=== PATIENT | female | born 1975 | race Caucasian/White ===

== ENCOUNTER 2016-11-01 06:26 | Emergency (ER) | payer SELFPAY ==
--- NOTE | 2016-11-01 09:08 | ED NURSING NOTES ---
Clinical Report - Nurses [facility] [address] [place] [address] 11/01/2016 6:27 Patient: ASHLEY SHARPE TRIAGE Triage time 06:Nov 01 2016. Acuity: LEVEL 3. Chief Complaint: SORE THROAT. 06:47 11/01/16. SEPSIS SCREEN: Sepsis Screen: negative. Infection suspected/documented. Heart rate greater than 90. --06:47 Yvette Mendosa 06:43 11/01/16. BP: 146/66. HR: 108. RR: 20. O2 saturation: 100% on room air. Temp: 98.8 F (oral). Pain level now: 03/07. --06:47 Yvette Mendosa. Weight: 81.6 kg stated. Height/Length: 61 inches Per Patient. BMI: 34. --06:45 Yvette Mendosa. Medications None. --06:45 Yvette Mendosa. Medication/allergy information source: the patient. --06:47 Yvette Mendosa. Allergies No Known Drug Allergy. --06:46 Yvette Mendosa. History Arrived by private vehicle. Historian: patient. Accompanied by family. Primary physician ([facility]). Onset. (1 weeks). ( Patient reports she has a sore throat since last Wednesday. Patient reports she went to [place] and was given a steroid and she states it is not helping. She states [place] told her that her tonsil was swollen and she needed to see a specialist.). PAST MEDICAL HX: Immunizations: up-to-date. Last normal menstrual period- 15 October. SOCIAL HX: Never smoker. No alcohol use or drug use. No infectious disease exposure. ABUSE ASSESSMENT: No report of abuse. FALL RISK ASSESSMENT: Fall risk assessment completed. No fall risk identified. NUTRITIONAL RISK ASSESSMENT: The nutritional risk assessment revealed no deficiencies. FUNCTIONAL ASSESSMENT: Functional assessment: no impairments noted. LEARNING NEEDS ASSESSMENT: The learning needs assessment revealed no barriers. SKIN INTEGRITY ASSESSMENT: Skin integrity risk assessment completed. No skin integrity risk identified. --06:47 Yvette Mendosa. PROBLEMS: no known problems. ADDITIONAL SURGERIES: Tubal Ligation. --06:46 Yvette Mendosa. Interventions ID band on patient. To treatment room. --06:47 Yvette Mendosa. PHYSICAL ASSESSMENT Ambulatory to room. GENERAL / NEURO / PSYCH: Alert. Oriented X 4. Appears in pain. HEENT: Posterior, right-sided and left-sided pharyngeal erythema with right tonsillar swelling and left tonsillar swelling. Muffled voice. Mucous membranes are pink. RESPIRATORY: Respirations not labored. CVS: Cardiac rhythm: sinus tachycardia; (105). SKIN: Skin is warm and dry. --06:49 Yvette Mendosa. NURSING PROGRESS NOTES Pulse oximeter and NIBP monitor placed on patient; monitor alarms on. Reassurance given to the patient. Two patient identifiers checked. Call light placed in reach. Side rails up x 1. Bed placed in lowest position. Brakes of bed on. Patient ready for evaluation- chart flagged and ED physician notified. --06:49 Yvette Mendosa Patient ID band checked for patient name and birthdate: patient confirmed. Throat swab obtained for rapid strep; labeled in the presence of the patient and sent to lab. --06:49 Navya Yvette Care transferred and report given (Garcia Estrella). --07:01 Yvette Mendosa 07:20. The patient reports no complaints and she is calm and resting quietly. ( First contact with pt.). --07:32 Gi Diez R.N. 07:31 11/01/16. BP: 146/76. HR: 96. RR: 18. O2 saturation: 96%. Pain level now 9/10. --07:32 Gi Diez R.N. 07:21 11/01/2016 Site #1 started via IV in the right antecubital space with an 20g angiocath, with aseptic technique and good blood return; one attempt. Blood drawn: rainbow set. Labeled in the presence of the patient and sent to the lab. Saline lock flushed with 10 mL saline. --07:32 Gi Diez R.N. 07:28 11/01/2016 Started bag #1 1000 mL IV Fluids IV NS (Saline); at 1000 mL/hr over 1 hour(s) via site #1 via IV pump. Allergies verified and confirmed 5 rights. IV patency established. IV site checked: no pain, redness, or swelling. IV flushed thoroughly pre- and post-medication administration. --07:34 Gi Diez R.N. 07:29 11/01/2016 Zofran (Ondansetron HCl) IVP 4 mg given over 1 minute(s) via site #1. Allergies verified and confirmed 5 rights. IV patency established. IV site checked: no pain, redness, or swelling. IV flushed thoroughly pre- and post-medication administration. --07:34 Gi Diez R.N. 07:30 11/01/2016 Dexamethasone IVP 10 mg given over 3 minute(s) via site #1. Allergies verified and confirmed 5 rights. IV patency established. IV site checked: no pain, redness, or swelling. IV flushed thoroughly pre- and post-medication administration. --07:34 Gi Diez R.N. 07:38 11/01/2016 Dilaudid (HYDROmorphone HCl PF) IVP 0.5 mg given over 1 minute(s) via site #1. Allergies verified, confirmed 5 rights and sedative warning given to the patient. IV patency established. IV site checked: no pain, redness, or swelling. IV flushed thoroughly pre- and post-medication administration. --07:38 Gi Diez R.N. 07:41 11/01/2016 Started 2 gm of Ceftriaxone IVPB in bag #1 50 mL; at 150 mL/hr over 20 minute(s) via site #1 via IV pump. Allergies verified and confirmed 5 rights. IV patency established. IV site checked: no pain, redness, or swelling. IV flushed thoroughly pre- and post-medication administration. --07:41 Gi Diez R.N. 07:42 11/01/2016 Dilaudid IVP Response: no adverse reaction pain is improving. The patient feels better. --07:42 Gi Diez R.N. 07:42 11/01/16. HR: 100. RR: 16. O2 saturation: 98%. --07:43 Gi Diez R.N. 07:59 11/01/2016 Ceftriaxone IVPB Discontinued: infused. Total amount infused: 20 mL. IV patency established. IV site checked: no pain, redness, or swelling. IV flushed thoroughly. --07:59 Gi Diez R.N. 07:59 11/01/16. BP: 152/66. HR: 105. RR: 16. O2 saturation: 98%. Pain level now 10. --08:00 Gi Diez R.N. 08:30 11/01/2016 IV Fluids IV NS Discontinued: bag #1 infused. Total amount infused: 1000 mL. IV patency established. IV site checked: no pain, redness, or swelling. IV flushed thoroughly. --09:15 Gi Diez R.N. DISPOSITION / DISCHARGE 09:15 11/01/2016 Site #1 removed upon discharge. Catheter intact. Manual pressure and bandaid applied. --09:15 Gi Diez R.N. 09:13 11/01/16. BP: 128/64. HR: 100. RR: 16. O2 saturation: 98%. Temp: 99.4 F. Pain level now 10. --09:15 Gi Diez R.N. Condition at departure: stable. No learning barriers present. Discharge instructions provided and reviewed with the patient. Reviewed medication(s) side effects, precautions, dosing and course information. Prescription(s) given to the patient. Reviewed referral to family practice for followup. Patient verbalized understanding. Written instructions provided in Sami. The patient was discharged home and accompanied by family. She left the Emergency Department ambulatory and via private vehicle. Family member driving. Medication list reviewed and validated. --09:15 Gi Diez R.N. Departure time: 09:20. --09:21 Gi Diez R.N. Locked/Released at 11/01/2016 10:20 by Gi Diez R.N.
--- NOTE | 2016-11-01 09:08 | ED CLINICAL REPORT ---
Clinical Report - Physicians/Mid Levels [facility] [address] [place] [address] 11/01/2016 6:27 Patient: ASHLEY SHARPE Time Seen: 06:50. Arrived- By private vehicle. Historian- patient. HISTORY OF PRESENT ILLNESS Chief Complaint: SORE THROAT. This started about 1 week ago and is still present. It was gradual in onset and has been waxing/waning. Pain described as moderate. The patient has had a sore throat with pain upon swallowing. No toothache or swollen jaw. Similar symptoms previously: Recent medical care: The patient was seen recently at another facility in the emergency department. ( Patient reports she has a sore throat since last Wednesday. Patient reports she went to [place] and was given a steroid and she states it is not helping. She states [place] told her that her tonsil was swollen and she needed to see a specialist.). Seen for similar symptoms. ( Seen at [facility] [place] for the same.). REVIEW OF SYSTEMS Last normal menstrual period- 15 October. No fever, cough, difficulty breathing, chest pain or diarrhea. No abdominal pain, difficulty with urination, headache, joint pain or skin rash. No vomiting. Denies current . The patient has had nausea. All systems otherwise negative, except as recorded above. PAST HISTORY PCP: [facility]. Multiple episodes of strep throat. Problems: no known problems. Surgeries: Tubal ligation. Medications: None. Allergies: No Known Drug Allergy. SOCIAL HISTORY Never smoker. No alcohol use or drug use. ADDITIONAL NOTES The nursing notes have been reviewed. PHYSICAL EXAM Vital Signs: 11/01/2016 06:43 BP: 146/66. HR: 108. RR: 20. O2 saturation: 100%. Temp: 98.8 F. Pain level now: 9/10. Appearance: Alert. Patient in moderate distress. Head: Normal external inspection. Eyes: Conjunctivae and eyelids normal. ENT: Ears normal. Nose normal. Generalized pharyngeal erythema with right tonsillar swelling and peritonsillitis and left tonsillar swelling and peritonsillitis. No right tonsillar exudate, right tonsillar abscess, left tonsillar exudate or left tonsillar abscess. No trismus present. Uvula midline. No mouth ulcerations, tonsillar exudate, peritonsillar mass, muffled or hoarse voice or drooling. No dental tenderness. The mucous membranes are not dry. Neck: Normal inspection. Moderate right anterior neck and moderate left anterior neck lymphadenopathy present. Trachea midline. Neck supple. No meningeal signs or JVD. CVS: Tachycardia. Heart sounds normal. Pulses normal. Respiratory: No respiratory distress. Breath sounds normal. Abdomen: Soft and nontender. No organomegaly. Skin: Normal skin color. No rash. Normal skin turgor. Extremities: Extremities exhibit normal ROM. Extremities nontender. Neuro: Oriented X 3. No motor deficit. LABS, X-RAYS, AND EKG Laboratory Tests: Monoscreen: (JOSE: 11/01/2016 07:44) ( [facility] 11/01/2016 08:31) Final results Test Result Flag Units (Reference) MONOSCREEN NEGATIVE (NEGATIVE) CBC w Diff: (JOSE: 11/01/2016 07:44) ( [facility] 11/01/2016 08:47) Final results Test Result Flag Units (Reference) WHITE BLOOD COUNT 10.3 K/uL (4.5-11.5) RED BLOOD COUNT 4.87 M/uL (4.00-5.20) HEMOGLOBIN 9.7 L gm/dL (12.0-16.0) HEMATOCRIT 31.4 L % (36.0-46.0) MEAN CELL VOLUME 64 L fL (80-100) MEAN CORPUSCULAR HGB 20 L pg (26-34) MEAN CORPUSCULAR HGB CONC 31 g/dL (31-37) RED CELL DISTRIBUTION WIDTH 17.9 H % (11.6-14.8) PLATELET COUNT 426 H K/uL (150-400) NEUTROPHIL % 74.4 % (50-75) LYMPH % 19.1 L % (25-40) MONO % 5.1 % (3-14) EOSINOPHIL % 1.1 % (0-4) BASOPHIL % 0.3 % (0-2) RBC MORPHOLOGY 1+ POLYCHROMASIA~~2+ OVALOCYTES~~3+ MICROCYTOSIS~~3+ HYPOCHROMIA BMP: (JOSE: 11/01/2016 07:44) ( MsgRcvd 11/01/2016 08:21) Final results Test Result Flag Units (Reference) GLUCOSE 127 H mg/dL (70-110) BUN 10 mg/dL (7-18) CREATININE 0.7 mg/dL (0.6-1.3) Estimated GFR >60 mL/min Estimated GFR- >60 mL/min Note: Persistent reduction over 3 months in eGFR<60 mL/min/1.73 m2 defines CKD. Patients with eGFR values>=60 mL/min/1.73 m2 may also have CKD if evidence ofpersistent proteinuria. Additional information may be foundat www.kidney.org. SODIUM 145 mmol/L (136-145) POTASSIUM 3.5 mmol/L (3.5-5.1) CHLORIDE 107 mmol/L (98-107) CARBON DIOXIDE 27 mmol/L (21-32) CALCIUM 7.9 L mg/dL (8.5-10.1) Culture, Strep Screen: (JOSE: 11/01/2016 06:47) ( MsgRcvd 11/01/2016 07:00) Final results Test Result Flag Units (Reference) RAPID STREP SCREEN - THROAT CALLED TO: BRANDI DAVID RN -- DATE: 11/01/16 POSITIVE SCREEN: RAPID STREP SCREEN: POSITIVE FOR GROUP A STREP . Pulse Oximetry: 11/01/2016 06:43 O2 saturation: 100%. (FIO2 - room air). Interpretation: normal. PROGRESS AND PROCEDURES Course of Care: Normal Saline 1 liter IVPB given. Ceftriaxone 2 gm IVP given. Dexamethasone 10 mg IVP given. Dilaudid 0.5 mg IVP given. 08:39 11/01/16. Patient is stable. Physical exam findings are improved. Symptoms much better. Patient/family counseled. Old ED records reviewed. (from [facility] Disposition: Discharged. Condition: stable and improved. CLINICAL IMPRESSION Acute streptococcal pharyngitis INSTRUCTIONS Do not work for three days. Rest. Drink plenty of fluids. Warnings: Further evaluation is necessary in order to recheck abnormal lab, obtain test results, conduct further tests and assess the possibility of serious illness. It is very important to follow up with a physician. SEDATIVE MEDICATION: You were given sedative medication during your visit. Do not drive or operate dangerous machinery. CONTROLLED SUBSTANCE WARNINGS. GENERAL WARNINGS: Return or contact your physician immediately if your condition worsens or changes unexpectedly, if not improving as expected, or if other problems arise. Prescription Medications: Clindamycin 300 mg: take 1 capsule orally every 6 hours for 7 days. No refills. Lortab Elixir 10 mg / 300 mg / 15 mL: take five (5) mL orally every 8 hours as needed for pain. Dispense seventy-five (75) mL. No refill. Substitution is permissible. Prednisolone Liquid 15mg/5 mL: take two (2) teaspoons orally every day for 3 days. No refill. OTC Medications: Acetaminophen (available over the counter): take according to label instructions. Motrin (available over the counter): take according to label instructions. Follow-up: Follow up with an ear, nose and throat physician (an implant polisher) As recommended by Mohit and / or your primary care provider tomorrow. Follow-up with: Ralph Smauels MD, ENT, , [facility], [address] [place] [address], [phone] Follow up tomorrow. (Electronically signed by Tomer Guardado DO 11/01/2016 11:13)
--- NOTE | 2016-11-01 09:08 | ED ORDER SUMMARY ---
..... Patient: ASHLEY SHARPE OrderSheet [facility] VisitID: [id number] [address] [place] [address] 41y, F Registration Date/Time: 11/01/2016 ORDER SHEET Weight: 81.6 kg (stated) Allergies: No Known Drug Allergy GENERAL ORDERS: Culture, Strep Screen [facility]gent [facility]06[facility] (6:52 JDeElena R.N.) CBC w Diff Urgent (07:[facility]/2016 [facility] (Ack 7:20 TBergley) (7:32 SReitz R.N.) BMP Urgent (07:[facility]/2016 [facility] (Ack 7:20 TBergley) (7:32 SReitz R.N.) Monoscreen Urgent (07:11[facility]01/2016 [facility] (Ack 7:20 TBergley) (7:32 SReitz R.N.) NPO (07:[facility]/2016 [facility] (Ack 7:20 TBergley) (7:32 SReitz R.N.) Old Records (from [facility]) (07:11/01/2016 [facility]) (Ack 7:19 TBergley) (9:11 SReitz R.N.) MEDICATION ORDERS: IV FLUIDS: Dexamethasone IV 10 mg (NOW) (07:11/01/2016 [facility]) (Ack 7:11 SReitz R.N.) (7:34 SReitz R.N.) Ceftriaxone IV 2 gm/50mL (NOW) (07:[facility]01/2016 [facility] (Ack 7:11 SReitz R.N.) (7:41 SReitz R.N.) IV NS : initial bolus 1000 mL (1000 mL/hr), then 1000 mL/hr for X1 (NOW) (07:[facility]/2016 [facility] (Ack 7:11 SReitz R.N.) (7:34 SReitz R.N.) IV Saline Lock (07:11/01/2016 [facility] DO) (Ack 7:11 Emma Lindsay) Dilaudid IV 0.5 mg (HIGH ALERT MEDICATION, NOW) (07:10 [facility]2016 [facility] (Ack 7:35 Emma DeeNRachel) (7:38 Emma Estrella.N.) Zofran IV 4 mg (NOW) (07:22 11/01/2016 [facility]) (7:34 Emma Lindsay) ORDER SHEET NOTES: [Electronically signed by Gi Diez R.N. (10:11/01/2016)] [Electronically signed by Tomer Guardado DO (11:13 11/01/2016)] [Electronically locked/signed by Gi Diez R.N. (:11/01/2016)]
--- NOTE | 2016-11-01 09:08 | ED CLINICAL REPORT ---
Clinical Report - Physicians/Mid Levels [facility] [address] [place] [address] 11/01/2016 6:27 Patient: ASHLEY SHARPE Time Seen: 06:50. Arrived- By private vehicle. Historian- patient. HISTORY OF PRESENT ILLNESS Chief Complaint: SORE THROAT. This started about 1 week ago and is still present. It was gradual in onset and has been waxing/waning. Pain described as moderate. The patient has had a sore throat with pain upon swallowing. No toothache or swollen jaw. Similar symptoms previously: Recent medical care: The patient was seen recently at another facility in the emergency department. ( Patient reports she has a sore throat since last Wednesday. Patient reports she went to [place] and was given a steroid and she states it is not helping. She states [place] told her that her tonsil was swollen and she needed to see a specialist.). Seen for similar symptoms. ( Seen at [facility] yesterday for the same.). REVIEW OF SYSTEMS Last normal menstrual period- 15 October. No fever, cough, difficulty breathing, chest pain or diarrhea. No abdominal pain, difficulty with urination, headache, joint pain or skin rash. No vomiting. Denies current . The patient has had nausea. All systems otherwise negative, except as recorded above. PAST HISTORY PCP: [facility]. Multiple episodes of strep throat. Problems: no known problems. Surgeries: Tubal ligation. Medications: None. Allergies: No Known Drug Allergy. SOCIAL HISTORY Never smoker. No alcohol use or drug use. ADDITIONAL NOTES The nursing notes have been reviewed. PHYSICAL EXAM Vital Signs: 11/01/2016 06:43 BP: 146/66. HR: 108. RR: 20. O2 saturation: 100%. Temp: 98.8 F. Pain level now: 9/10. Appearance: Alert. Patient in moderate distress. Head: Normal external inspection. Eyes: Conjunctivae and eyelids normal. ENT: Ears normal. Nose normal. Generalized pharyngeal erythema with right tonsillar swelling and peritonsillitis and left tonsillar swelling and peritonsillitis. No right tonsillar exudate, right tonsillar abscess, left tonsillar exudate or left tonsillar abscess. No trismus present. Uvula midline. No mouth ulcerations, tonsillar exudate, peritonsillar mass, muffled or hoarse voice or drooling. No dental tenderness. The mucous membranes are not dry. Neck: Normal inspection. Moderate right anterior neck and moderate left anterior neck lymphadenopathy present. Trachea midline. Neck supple. No meningeal signs or JVD. CVS: Tachycardia. Heart sounds normal. Pulses normal. Respiratory: No respiratory distress. Breath sounds normal. Abdomen: Soft and nontender. No organomegaly. Skin: Normal skin color. No rash. Normal skin turgor. Extremities: Extremities exhibit normal ROM. Extremities nontender. Neuro: Oriented X 3. No motor deficit. LABS, X-RAYS, AND EKG Laboratory Tests: Monoscreen: (JOSE: 11/01/2016 07:44) ( [facility] 11/01/2016 08:31) Final results Test Result Flag Units (Reference) MONOSCREEN NEGATIVE (NEGATIVE) CBC w Diff: (JOSE: 11/01/2016 07:44) ( [facility] 11/01/2016 08:47) Final results Test Result Flag Units (Reference) WHITE BLOOD COUNT 10.3 K/uL (4.5-11.5) RED BLOOD COUNT 4.87 M/uL (4.00-5.20) HEMOGLOBIN 9.7 L gm/dL (12.0-16.0) HEMATOCRIT 31.4 L % (36.0-46.0) MEAN CELL VOLUME 64 L fL (80-100) MEAN CORPUSCULAR HGB 20 L pg (26-34) MEAN CORPUSCULAR HGB CONC 31 g/dL (31-37) RED CELL DISTRIBUTION WIDTH 17.9 H % (11.6-14.8) PLATELET COUNT 426 H K/uL (150-400) NEUTROPHIL % 74.4 % (50-75) LYMPH % 19.1 L % (25-40) MONO % 5.1 % (3-14) EOSINOPHIL % 1.1 % (0-4) BASOPHIL % 0.3 % (0-2) RBC MORPHOLOGY 1+ POLYCHROMASIA~~2+ OVALOCYTES~~3+ MICROCYTOSIS~~3+ HYPOCHROMIA BMP: (JOSE: 11/01/2016 07:44) ( MsgRcvd 11/01/2016 08:21) Final results Test Result Flag Units (Reference) GLUCOSE 127 H mg/dL (70-110) BUN 10 mg/dL (7-18) CREATININE 0.7 mg/dL (0.6-1.3) Estimated GFR >60 mL/min Estimated GFR- >60 mL/min Note: Persistent reduction over 3 months in eGFR<60 mL/min/1.73 m2 defines CKD. Patients with eGFR values>=60 mL/min/1.73 m2 may also have CKD if evidence ofpersistent proteinuria. Additional information may be foundat www.kidney.org. SODIUM 145 mmol/L (136-145) POTASSIUM 3.5 mmol/L (3.5-5.1) CHLORIDE 107 mmol/L (98-107) CARBON DIOXIDE 27 mmol/L (21-32) CALCIUM 7.9 L mg/dL (8.5-10.1) Culture, Strep Screen: (JOSE: 11/01/2016 06:47) ( MsgRcvd 11/01/2016 07:00) Final results Test Result Flag Units (Reference) RAPID STREP SCREEN - THROAT CALLED TO: BRANDI DAVID RN -- DATE: 11/01/16 POSITIVE SCREEN: RAPID STREP SCREEN: POSITIVE FOR GROUP A STREP . Pulse Oximetry: 11/01/2016 06:43 O2 saturation: 100%. (FIO2 - room air). Interpretation: normal. PROGRESS AND PROCEDURES Course of Care: Normal Saline 1 liter IVPB given. Ceftriaxone 2 gm IVP given. Dexamethasone 10 mg IVP given. Dilaudid 0.5 mg IVP given. 08:39 11/01/16. Patient is stable. Physical exam findings are improved. Symptoms much better. Patient/family counseled. Old ED records reviewed. (from [facility]). Disposition: Discharged. Condition: stable and improved. CLINICAL IMPRESSION Acute streptococcal pharyngitis INSTRUCTIONS Do not work for three days. Rest. Drink plenty of fluids. Warnings: Further evaluation is necessary in order to recheck abnormal lab, obtain test results, conduct further tests and assess the possibility of serious illness. It is very important to follow up with a physician. SEDATIVE MEDICATION: You were given sedative medication during your visit. Do not drive or operate dangerous machinery. CONTROLLED SUBSTANCE WARNINGS. GENERAL WARNINGS: Return or contact your physician immediately if your condition worsens or changes unexpectedly, if not improving as expected, or if other problems arise. Prescription Medications: Clindamycin 300 mg: take 1 capsule orally every 6 hours for 7 days. No refills. Lortab Elixir 10 mg / 300 mg / 15 mL: take five (5) mL orally every 8 hours as needed for pain. Dispense seventy-five (75) mL. No refill. Substitution is permissible. Prednisolone Liquid 15mg/5 mL: take two (2) teaspoons orally every day for 3 days. No refill. OTC Medications: Acetaminophen (available over the counter): take according to label instructions. Motrin (available over the counter): take according to label instructions. Follow-up: Follow up with an ear, nose and throat physician (an electro mechanic) As recommended by Mohit and / or your primary care provider tomorrow. Follow-up with: Ralph Samuels MD, ENT, , [facility], [address] [place] [address], [phone] Follow up tomorrow. (Electronically signed by Tomer Guardado DO 11/01/2016 11:13)
--- NOTE | 2016-11-01 09:08 | ED ORDER SUMMARY ---
..... Patient: ASHLEY SHARPE OrderSheet [facility] VisitID: [id number] [address] [place] [address] 41y, F Registration Date/Time: 11/01/2016 ORDER SHEET Weight: 81.6 kg (stated) Allergies: No Known Drug Allergy GENERAL ORDERS: Culture, Strep Screen Urgent (06:50 11/01/2016 [facility] DO) (6:52 JDeElena R.N.) CBC w Diff Urgent (07:11/01/2016 [facility] DO) (Ack 7:20 TBergley) (7:32 SReitz R.N.) BMP Urgent (07:11/01/2016 [facility] DO) (Ack 7:20 TBergley) (7:32 SReitz R.N.) Monoscreen Urgent (07:11/01/2016 [facility] DO) (Ack 7:20 TBergley) (7:32 SReitz R.N.) NPO (07:11/01/2016 [facility] DO) (Ack 7:20 TBergley) (7:32 SReitz R.N.) Old Records (from [facility]) (07:11/01/2016 [facility] DO) (Ack 7:19 TBergley) (9:11 SReitz R.N.) MEDICATION ORDERS: IV FLUIDS: Dexamethasone IV 10 mg (NOW) (07:11/01/2016 [facility] DO) (Ack 7:11 SReitz R.N.) (7:34 SReitz R.N.) Ceftriaxone IV 2 gm/50mL (NOW) (07:11/01/2016 [facility] DO) (Ack 7:11 SReitz R.N.) (7:41 SReitz R.N.) IV NS : initial bolus 1000 mL (1000 mL/hr), then 1000 mL/hr for X1 (NOW) (07:11/01/2016 [facility] DO) (Ack 7:11 SReitz R.N.) (7:34 SReitz R.N.) IV Saline Lock (07:11/01/2016 [facility] DO) (Ack 7:11 Emma Lindsay) Dilaudid IV 0.5 mg (HIGH ALERT MEDICATION, NOW) [facility]07:10 [facility] (Ack 7:35 Emma DeeNRachel) (7:38 Emma Estrella.N.) Zofran IV 4 mg (NOW) (07:22 11/01/2016 [facility]) (7:34 Emma Lindsay) ORDER SHEET NOTES: [Electronically signed by Gi Diez R.N. (10:11/01/2016)] [Electronically signed by Tomer Guardado DO (11:13 11/01/2016)] [Electronically locked/signed by Gi Diez R.N. (:11/01/2016)]
--- NOTE | 2016-11-01 11:14 | ED MED RECONCILIATION SUMMARY ---
Patient: ASHLEY SHARPE Medication Reconciliation Report [facility] VisitID: [id number] [address] [place] [address] 41y, F Registration Date/Time: 11/01/2016 Weight: 81.6 kg Height/Length: 61 in. BMI: 34.0 ALLERGIES: No Known Drug Allergy The patient's Home Medications are listed below: NONE. The source(s) of the original Home Medication information: patient The following Medications were given to the patient in the Emergency Department: IV NS IV Fluids bolus 0, then 1000 mL/hr, administered: 11/01/2016 7:28:00 AM Zofran [IVP] IVP 4 mg, administered: 11/01/2016 7:29:00 AM Dexamethasone [IVP] IVP 10 mg, administered: 11/01/2016 7:30:00 AM Dilaudid [IVP] IVP 0.5 mg, administered: 11/01/2016 7:38:00 AM Ceftriaxone [IVPB] IVPB bolus 0, then 2 gm 150 mL/hr, administered: 11/01/2016 7:41:00 AM The following Medications were prescribed to the patient: Acetaminophen (available over the counter): take according to label instructions. -- Tomer Guardado DO Motrin (available over the counter): take according to label instructions. -- Tomer Guardado DO Clindamycin 300 mg: take 1 capsule orally every 6 hours for 7 days. No refills. -- Tomer Guardado DO Lortab Elixir 10 mg / 300 mg / 15 mL: take five (5) mL orally every 8 hours as needed for pain. Dispense seventy-five (75) mL. No refill. Substitution is permissible. -- Tomer Guardado DO Prednisolone Liquid 15mg/5 mL: take two (2) teaspoons orally every day for 3 days. No refill. -- Tomer Guardado DO
--- NOTE | 2016-11-01 11:14 | ED MAR SUMMARY ---
..... Medication Administration Record [facility] [address] [place] [address] Patient: ASHLEY SHARPE Visit ID: [id number] 41y, F Weight: 81.6 kg Height/Length: 61 in BMI: 34 ALLERGIES: No Known Drug Allergy Start 07:28 11/01/2016 Gi Diez R.N., Stop 08:30 11/01/2016 Gi Diez R.N. Medication Administered: IV NS (SALINE), Dose: IV Fluids over 1 hour(s), Rate: 1000 mL/hr, Dispensed: 1000 mL bag, Site: #1 right AC. Medication Ordered: IV NS : initial bolus 1000 mL (1000 mL/hr), then 1000 mL/hr for X1 (NOW). Given 07:29 11/01/2016 Gi Diez R.N. Medication Administered: ZOFRAN [IVP] (ONDANSETRON HCL), Dose: 4 mg IVP over 1 minute(s), Site: #1 right AC. Medication Ordered: Zofran IV 4 mg (NOW). Given 07:30 11/01/2016 Gi Diez R.N. Medication Administered: DEXAMETHASONE [IVP], Dose: 10 mg IVP over 3 minute(s), Site: #1 right AC. Medication Ordered: Dexamethasone IV 10 mg (NOW). Given 07:38 11/01/2016 Gi Diez R.N. Medication Administered: DILAUDID [IVP] (HYDROMORPHONE HCL PF), Dose: 0.5 mg IVP over 1 minute(s), Site: #1 right AC. Medication Ordered: Dilaudid IV 0.5 mg (HIGH ALERT MEDICATION, NOW). Start 07:41 11/01/2016 Gi Diez R.N., Stop 07:59 11/01/2016 Gi Diez R.N. Medication Administered: CEFTRIAXONE [IVPB], Dose: 2 gm IVPB over 20 minute(s), Rate: 150 mL/hr, Dispensed: 50 mL bag, Site: #1 right AC. Medication Ordered: Ceftriaxone IV 2 gm/50mL (NOW).
--- NOTE | 2016-11-01 11:14 | ED DISCHARGE INSTRUCTIONS ---
Patient: ASHLEY SHARPE General Instructions [facility] VisitID: [id number] [address] [place] [address] 41y, F Registration Date/Time: 11/01/2016 Acute streptococcal pharyngitis INSTRUCTIONS Do not work for three days. Rest. Drink plenty of fluids. Warnings: Further evaluation is necessary in order to recheck abnormal lab, obtain test results, conduct further tests and assess the possibility of serious illness. It is very important to follow up with a physician. SEDATIVE MEDICATION: You were given sedative medication during your visit. Do not drive or operate dangerous machinery. CONTROLLED SUBSTANCE WARNINGS. GENERAL WARNINGS: Return or contact your physician immediately if your condition worsens or changes unexpectedly, if not improving as expected, or if other problems arise. Prescription Medications: Clindamycin 300 mg: take 1 capsule orally every 6 hours for 7 days. No refills. Lortab Elixir 10 mg / 300 mg / 15 mL: take five (5) mL orally every 8 hours as needed for pain. Dispense seventy-five (75) mL. No refill. Substitution is permissible. Prednisolone Liquid 15mg/5 mL: take two (2) teaspoons orally every day for 3 days. No refill. OTC Medications: Acetaminophen (available over the counter): take according to label instructions. Motrin (available over the counter): take according to label instructions. Follow-up: Follow up with an ear, nose and throat physician (an bankruptcy paralegal) As recommended by Mohit and / or your primary care provider tomorrow. Follow-up with: Ralph Samuels MD, ENT, , [facility], [address] [place] [address], [facility], [id number] Follow up tomorrow. ADDITIONAL INFORMATION Pharyngitis: Strep [Confirmed] Your test for strep throat was positive. Strep throat is a contagious illness. It is spread by coughing, kissing or by touching others after touching your mouth or nose. Symptoms include throat pain which is worse with swallowing, aching all over, headache and fever. You will be treated with an antibiotic which should make you start to feel better within 1-2 days. Home Care: Rest at home and drink plenty of fluids to avoid dehydration. No school or work for the first two days on antibiotics. You will not be contagious after this time and if you are feeling better, you can return to school or work. Take your antibiotics for a full 10 days, even if you feel better after the first few days of treatment. This is very important to prevent heart or kidney disease that can result as a complication of untreated strep throat infection. Children: Use acetaminophen (Tylenol) for fever, fussiness or discomfort. In infants over six months of age, you may use ibuprofen (Children's Motrin) instead of Tylenol. [NOTE: If your child has chronic liver or kidney disease or ever had a stomach ulcer or GI bleeding, talk with your doctor before using these medicines.] (Aspirin should never be used in anyone under 18 years of age who is ill with a fever. It may cause severe liver damage.)Adults: You may use acetaminophen (Tylenol) or ibuprofen (Motrin, Advil) to control pain or fever, unless another medicine was prescribed for this. [NOTE: If you have chronic liver or kidney disease or ever had a stomach ulcer or GI bleeding, talk with your doctor before using these medicines.] Throat lozenges or sprays (Chloraseptic and others) will reduce pain. Gargling with warm salt water will also reduce throat pain. Dissolve 1/2 teaspoon of salt in 1 glass of warm water. This is especially useful just before meals. Follow Up with your doctor or as directed by our staff if you are not improving over the next week. Get Prompt Medical Attention if any of the following occur: Fever of 100.4F (38C) oral or higher, not better with fever medication New or worsening ear pain, sinus pain or headache Painful lumps in the back of your neck Unable to swallow liquids or open your mouth wide due to throat pain Trouble breathing or noisy breathing Muffled voice New rash Clear Liquid Diet Clear liquids are any liquid that you can see through as well as those that are very easy to digest. This is used while the body is recovering from irritation or infection of the stomach or intestinal tract. It may also be used before special procedures or surgery. This diet is to be used no more than three days. You may include the following items. Adults Adults should drink a total of 23 quarts of liquid per day. It may be easier to drink small frequent servings rather than a few large ones. Liquids can include: Fruit juices.Strained orange juice or lemonade (no pulp), apple, grape and cranberry juice, clear fruit drinks, sports drinks Beverages.Sport drinks, sodas, mineral water (plain or flavored), tea, black coffee, liquid gelatin (add twice the recommended amount of water) Soups.Clear broth, consomm, bouillon Desserts.Plain gelatin, popsicles, fruit juice bars Children Over 2 years old The following liquids are acceptable for children over age 2: Fruit juices.Strained orange juice or lemonade (no pulp), apple, grape and cranberry juice, clear fruit drinks Beverages. Sports drinks, sodas, mineral water (plain or flavored), tea, liquid gelatin (add twice the recommended amount of water) Soups. Clear broth, consomm, bouillon Desserts. Plain gelatin, popsicles, fruit juice bars Children under 2 years old Oral rehydration fluids such are available at drug stores and most grocery stores without a prescription. Clindamycin Hydrochloride Oral capsule What is this medicine? CLINDAMYCIN (KLIN da MYE sin) is a lincosamide antibiotic. It is used to treat certain kinds of bacterial infections. It will not work for colds, flu, or other viral infections. How should I use this medicine? Take this medicine by mouth with a full glass of water. Follow the directions on the prescription label. You can take this medicine with food or on an empty stomach. If the medicine upsets your stomach, take it with food. Take your medicine at regular intervals. Do not take your medicine more often than directed. Take all of your medicine as directed even if you think your are better. Do not skip doses or stop your medicine early. Talk to your carroting machine operator regarding the use of this medicine in children. Special care may be needed. What side effects may I notice from receiving this medicine? Side effects that you should report to your doctor or health morning caregiver as soon as possible: allergic reactions like skin rash, itching or hives, swelling of the face, lips, or tongue dark urine pain on swallowing redness, blistering, peeling or loosening of the skin, including inside the mouth unusual bleeding or bruising unusually weak or tired yellowing of eyes or skin Side effects that usually do not require medical attention (report to your doctor or health morning caregiver if they continue or are bothersome): diarrhea itching in the rectal or genital area joint pain nausea, vomiting stomach pain What may interact with this medicine? chloramphenicol erythromycin kaolin products What if I miss a dose? If you miss a dose, take it as soon as you can. If it is almost time for your next dose, take only that dose. Do not take double or extra doses. Where should I keep my medicine? Keep out of the reach of children. Store at room temperature between 20 and 25 degrees C (68 and 77 degrees F). Throw away any unused medicine after the expiration date. What should I tell my health care provider before I take this medicine? They need to know if you have any of these conditions: kidney disease liver disease stomach problems like colitis an unusual or allergic reaction to clindamycin, lincomycin, or other medicines, foods, dyes like tartrazine or preservatives or trying to get breast-feeding What should I watch for while using this medicine? Tell your doctor or healthcare professional if your symptoms do not start to get better or if they get worse. Do not treat diarrhea with over the counter products. Contact your doctor if you have diarrhea that lasts more than 2 days or if it is severe and watery. Hydrocodone Bitartrate, Acetaminophen Oral solution What is this medicine? ACETAMINOPHEN; HYDROCODONE (a set a KIRAN june fen; diogo droe KOE done) is a pain reliever. It is used to treat mild to moderate pain. How should I use this medicine? Take this medicine by mouth. Use a specially marked spoon or dropper to measure your dose. Ask your pharmacist if you do not have a dropper or measuring spoon. Do not use a household spoon. Follow the directions on the prescription label. If the medicine upsets your stomach, take it with food or milk. Do not take more medicine than you are told to take. Talk to your carroting machine operator regarding the use of this medicine in children. This medicine is not approved for use in children. What side effects may I notice from receiving this medicine? Side effects that you should report to your doctor or health morning caregiver as soon as possible: allergic reactions like skin rash, itching or hives, swelling of the face, lips, or tongue breathing problems confusion feeling faint or lightheaded, falls stomach pain yellowing of the eyes or skin Side effects that usually do not require medical attention (report to your doctor or health morning caregiver if they continue or are bothersome): nausea, vomiting stomach upset What may interact with this medicine? alcohol antihistamines isoniazid medicines for depression, anxiety, or psychotic disturbances medicines for sleep muscle relaxants naltrexone narcotic medicines (opiates) for pain phenobarbital ritonavir tramadol What if I miss a dose? If you miss a dose, take it as soon as you can. If it is almost time for your next dose, take only that dose. Do not take double or extra doses. Where should I keep my medicine? Keep out of the reach of children. This medicine can be abused. Keep your medicine in a safe place to protect it from theft. Do not share this medicine with anyone. Selling or giving away this medicine is dangerous and against the law. Store at room temperature between 20 and 25 degrees C (68 and 77 degrees F). Protect from light. Keep container tightly closed. Throw away any unused medicine after the expiration date. Discard unused medicine and used packaging carefully. Pets and children can be harmed if they find used or lost packages. What should I tell my health care provider before I take this medicine? They need to know if you have any of these conditions: brain tumor Crohn's disease, inflammatory bowel disease, or ulcerative colitis drink more than 3 alcohol-containing drinks per day drug abuse or addiction head injury heart or circulation problems kidney disease or problems going to the bathroom liver disease lung disease, asthma, or breathing problems an unusual or allergic reaction to acetaminophen, hydrocodone, other opioid analgesics, other medicines, foods, dyes, or preservatives or trying to get breast-feeding What should I watch for while using this medicine? Tell your doctor or health morning caregiver if your pain does not go away, if it gets worse, or if you have new or a different type of pain. You may develop tolerance to the medicine. Tolerance means that you will need a higher dose of the medicine for pain relief. Tolerance is normal and is expected if you take this medicine for a long time. Do not suddenly stop taking your medicine because you may develop a severe reaction. Your body becomes used to the medicine. This does NOT mean you are addicted. Addiction is a behavior related to getting and using a drug for a non-medical reason. If you have pain, you have a medical reason to take pain medicine. Your doctor will tell you how much medicine to take. If your doctor wants you to stop the medicine, the dose will be slowly lowered over time to avoid any side effects. You may get drowsy or dizzy when you first start taking the medicine or change doses. Do not drive, use machinery, or do anything that may be dangerous until you know how the medicine affects you. Stand or sit up slowly. There are different types of narcotic medicines (opiates) for pain. If you take more than one type at the same time, you may have more side effects. Give your health care provider a list of all medicines you use. Your doctor will tell you how much medicine to take. Do not take more medicine than directed. Call emergency for help if you have problems breathing. The medicine will cause constipation. Try to have a bowel movement at least every 2 to 3 days. If you do not have a bowel movement for 3 days, call your doctor or health morning caregiver. Too much acetaminophen can be very dangerous. Do not take Tylenol (acetaminophen) or medicines that contain acetaminophen with this medicine. Many non-prescription medicines contain acetaminophen. Always read the labels carefully. Prednisolone Sodium Phosphate Oral solution What is this medicine? PREDNISOLONE (pred NISS oh lone) is a corticosteroid. It is used to treat inflammation of the skin, joints, lungs, and other organs. Common conditions treated include asthma, allergies, and arthritis. It is also used for other conditions, such as blood disorders and diseases of the adrenal glands. How should I use this medicine? Take this medicine by mouth. Use a specially marked spoon or dropper to measure your dose. Ask your pharmacist if you do not have one. Household spoons are not accurate. Take with food or milk to avoid stomach upset. If you are taking this medicine once a day, take it in the morning. Do not take it more often than directed. Do not suddenly stop taking your medicine because you may develop a severe reaction. Your doctor will tell you how much medicine to take. If your doctor wants you to stop the medicine, the dose may be slowly lowered over time to avoid any side effects. Talk to your carroting machine operator regarding the use of this medicine in children. Special care may be needed. What side effects may I notice from receiving this medicine? Side effects that you should report to your doctor or health morning caregiver as soon as possible: eye pain, decreased or blurred vision, or bulging eyes fever, sore throat, sneezing, cough, or other signs of infection, wounds that will not heal frequent passing of urine increased thirst mental depression, mood swings, mistaken feelings of self importance or of being mistreated pain in hips, back, ribs, arms, shoulders, or legs swelling of feet or lower legs Side effects that usually do not require medical attention (report to your doctor or health morning caregiver if they continue or are bothersome): confusion, excitement, restlessness headache nausea, vomiting skin problems, acne, thin and shiny skin weight gain What may interact with this medicine? Do not take this medicine with any of the following medications: mifepristone This medicine may also interact with the following medications: aspirin phenobarbital phenytoin rifampin vaccines warfarin What if I miss a dose? If you miss a dose, take it a soon as you can. If it is almost time for your next dose, talk to your doctor or health morning caregiver. You may need to miss a dose or take an extra dose. Do not take double or extra doses without advice. Where should I keep my medicine? Keep out of the reach of children. See product for storage instructions. Each product may have different instructions. What should I tell my health care provider before I take this medicine? They need to know if you have any of these conditions: [place]'s syndrome diabetes glaucoma heart problems or disease high blood pressure infection such as herpes, measles, tuberculosis, or chickenpox kidney disease liver disease mental problems myasthenia gravis osteoporosis seizures stomach ulcer or intestine disease including colitis and diverticulitis thyroid problem an unusual or allergic reaction to lactose, prednisolone, other medicines, foods, dyes, or preservatives or trying to get breast-feeding What should I watch for while using this medicine? Visit your doctor or health morning caregiver for regular checks on your progress. If you are taking this medicine over a prolonged period, carry an identification card with your name and address, the type and dose of your medicine, and your doctor's name and address. The medicine may increase your risk of getting an infection. Stay away from people who are sick. Tell your doctor or health morning caregiver if you are around anyone with measles or chickenpox. If you are going to have surgery, tell your doctor or health morning caregiver that you have taken this medicine within the last twelve months. Ask your doctor or health morning caregiver about your diet. You may need to lower the amount of salt you eat. The medicine can increase your blood sugar. If you are a diabetic check with your doctor if you need help adjusting the dose of your diabetic medicine. Acetaminophen Oral tablet What is this medicine? ACETAMINOPHEN (a set a KIRAN june fen) is a pain reliever. It is used to treat mild pain and fever. How should I use this medicine? Take this medicine by mouth with a glass of water. Follow the directions on the package or prescription label. Take your medicine at regular intervals. Do not take your medicine more often than directed. Talk to your carroting machine operator regarding the use of this medicine in children. While this drug may be prescribed for children as young as 6 years of age for selected conditions, precautions do apply. What side effects may I notice from receiving this medicine? Side effects that you should report to your doctor or health morning caregiver as soon as possible: allergic reactions like skin rash, itching or hives, swelling of the face, lips, or tongue breathing problems fever or sore throat redness, blistering, peeling or loosening of the skin, including inside the mouth trouble passing urine or change in the amount of urine unusual bleeding or bruising unusually weak or tired yellowing of the eyes or skin Side effects that usually do not require medical attention (report to your doctor or health morning caregiver if they continue or are bothersome): headache nausea, stomach upset What may interact with this medicine? alcohol imatinib isoniazid other medicines with acetaminophen What if I miss a dose? If you miss a dose, take it as soon as you can. If it is almost time for your next dose, take only that dose. Do not take double or extra doses. Where should I keep my medicine? Keep out of reach of children. Store at room temperature between 20 and 25 degrees C (68 and 77 degrees F). Protect from moisture and heat. Throw away any unused medicine after the expiration date. What should I tell my health care provider before I take this medicine? They need to know if you have any of these conditions: if you frequently drink alcohol containing drinks liver disease an unusual or allergic reaction to acetaminophen, other medicines, foods, dyes or preservatives or trying to get breast-feeding What should I watch for while using this medicine? Tell your doctor or health morning caregiver if the pain lasts more than 10 days (5 days for children), if it gets worse, or if there is a new or different kind of pain. Also, check with your doctor if a fever lasts for more than 3 days. Do not take other medicines that contain acetaminophen with this medicine. Always read labels carefully. If you have questions, ask your doctor or pharmacist. If you take too much acetaminophen get medical help right away. Too much acetaminophen can be very dangerous and cause liver damage. Even if you do not have symptoms, it is important to get help right away. Ibuprofen Oral tablet What is this medicine? IBUPROFEN (eye BYOO proe fen) is a non-steroidal anti-inflammatory drug (NSAID). It is used for dental pain, fever, headaches or migraines, osteoarthritis, rheumatoid arthritis, or painful monthly periods. It can also relieve minor aches and pains caused by a cold, flu, or sore throat. How should I use this medicine? Take this medicine by mouth with a glass of water. Follow the directions on the prescription label. Take this medicine with food if your stomach gets upset. Try to not lie down for at least 10 minutes after you take the medicine. Take your medicine at regular intervals. Do not take your medicine more often than directed. A special MedGuide will be given to you by the pharmacist with each prescription and refill. Be sure to read this information carefully each time. Talk to your carroting machine operator regarding the use of this medicine in children. Special care may be needed. What side effects may I notice from receiving this medicine? Side effects that you should report to your doctor or health morning caregiver as soon as possible: allergic reactions like skin rash, itching or hives, swelling of the face, lips, or tongue black or bloody stools, blood in the urine or in vomit breathing problems changes in vision chest pain general ill feeling or flu-like symptoms nausea or vomiting redness, blistering, peeling or loosening of the skin, including inside the mouth slurred speech or weakness on one side of the body stomach pain unexplained weight gain or swelling unusually weak or tired yellowing of eyes or skin Side effects that usually do not require medical attention (report to your doctor or health morning caregiver if they continue or are bothersome): constipation or diarrhea dizziness gas or heartburn stomach upset What may interact with this medicine? Do not take this medicine with any of the following medications: cidofovir ketorolac methotrexate pemetrexed This medicine may also interact with the following medications: alcohol aspirin diuretics lithium other drugs for inflammation like prednisone warfarin What if I miss a dose? If you miss a dose, take it as soon as you can. If it is almost time for your next dose, take only that dose. Do not take double or extra doses. Where should I keep my medicine? Keep out of the reach of children. Store at room temperature between 15 and 30 degrees C (59 and 86 degrees F). Keep container tightly closed. Throw away any unused medicine after the expiration date. What should I tell my health care provider before I take this medicine? They need to know if you have any of these conditions: asthma cigarette smoker drink more than 3 alcohol containing drinks a day heart disease or circulation problems such as heart failure or leg edema (fluid retention) high blood pressure kidney disease liver disease stomach bleeding or ulcers an unusual or allergic reaction to ibuprofen, aspirin, other NSAIDS, other medicines, foods, dyes, or preservatives or trying to get breast-feeding What should I watch for while using this medicine? Tell your doctor or healthcare professional if your symptoms do not start to get better or if they get worse. This medicine does not prevent heart attack or stroke. In fact, this medicine may increase the chance of a heart attack or stroke. The chance may increase with longer use of this medicine and in people who have heart disease. If you take aspirin to prevent heart attack or stroke, talk with your doctor or health morning caregiver. Do not take other medicines that contain aspirin, ibuprofen, or naproxen with this medicine. Side effects such as stomach upset, nausea, or ulcers may be more likely to occur. Many medicines available without a prescription should not be taken with this medicine. This medicine can cause ulcers and bleeding in the stomach and intestines at any time during treatment. Ulcers and bleeding can happen without warning symptoms and can cause . To reduce your risk, do not smoke cigarettes or drink alcohol while you are taking this medicine. You may get drowsy or dizzy. Do not drive, use machinery, or do anything that needs mental alertness until you know how this medicine affects you. Do not stand or sit up quickly, especially if you are an older patient. This reduces the risk of dizzy or fainting spells. This medicine can cause you to bleed more easily. Try to avoid damage to your teeth and gums when you brush or floss your teeth. You have been given the following additional information: Pharyngitis, Strep (Confirmed) Diet, Clear Liquid Clindamycin Hydrochloride Oral capsule Hydrocodone Bitartrate, Acetaminophen Oral solution Prednisolone Sodium Phosphate Oral solution Acetaminophen Oral tablet Ibuprofen Oral tablet Do not work for three days. Rest. (Electronically signed by Tomer Guardado DO 11/01/2016 11:13)
--- NOTE | 2016-11-01 11:14 | ED MED RECONCILIATION SUMMARY ---
Patient: ASHLEY SHARPE Medication Reconciliation Report [facility] VisitID: [id number] [address] [place] [address] 41y, F Registration Date/Time: 11/01/2016 Weight: 81.6 kg Height/Length: 61 in. BMI: 34.0 ALLERGIES: No Known Drug Allergy The patient's Home Medications are listed below: NONE. The source(s) of the original Home Medication information: patient The following Medications were given to the patient in the Emergency Department: IV NS IV Fluids bolus 0, then 1000 mL/hr, administered: 11/01/2016 7:28:00 AM Zofran [IVP] IVP 4 mg, administered: 11/01/2016 7:29:00 AM Dexamethasone [IVP] IVP 10 mg, administered: 11/01/2016 7:30:00 AM Dilaudid [IVP] IVP 0.5 mg, administered: 11/01/2016 7:38:00 AM Ceftriaxone [IVPB] IVPB bolus 0, then 2 gm 150 mL/hr, administered: 11/01/2016 7:41:00 AM The following Medications were prescribed to the patient: Acetaminophen (available over the counter): take according to label instructions. -- Tomer Guardado DO Motrin (available over the counter): take according to label instructions. -- Tomer Guardado DO Clindamycin 300 mg: take 1 capsule orally every 6 hours for 7 days. No refills. -- Tomer Guardado DO Lortab Elixir 10 mg / 300 mg / 15 mL: take five (5) mL orally every 8 hours as needed for pain. Dispense seventy-five (75) mL. No refill. Substitution is permissible. -- Tomer Guardado DO Prednisolone Liquid 15mg/5 mL: take two (2) teaspoons orally every day for 3 days. No refill. -- Tomer Guardado DO
--- NOTE | 2016-11-01 11:14 | ED DISCHARGE INSTRUCTIONS ---
Patient: ASHLEY SHARPE General Instructions [facility] VisitID: [id number] [address] [place] [address] 41y, F Registration Date/Time: 11/01/2016 Acute streptococcal pharyngitis INSTRUCTIONS Do not work for three days. Rest. Drink plenty of fluids. Warnings: Further evaluation is necessary in order to recheck abnormal lab, obtain test results, conduct further tests and assess the possibility of serious illness. It is very important to follow up with a physician. SEDATIVE MEDICATION: You were given sedative medication during your visit. Do not drive or operate dangerous machinery. CONTROLLED SUBSTANCE WARNINGS. GENERAL WARNINGS: Return or contact your physician immediately if your condition worsens or changes unexpectedly, if not improving as expected, or if other problems arise. Prescription Medications: Clindamycin 300 mg: take 1 capsule orally every 6 hours for 7 days. No refills. Lortab Elixir 10 mg / 300 mg / 15 mL: take five (5) mL orally every 8 hours as needed for pain. Dispense seventy-five (75) mL. No refill. Substitution is permissible. Prednisolone Liquid 15mg/5 mL: take two (2) teaspoons orally every day for 3 days. No refill. OTC Medications: Acetaminophen (available over the counter): take according to label instructions. Motrin (available over the counter): take according to label instructions. Follow-up: Follow up with an ear, nose and throat physician (an industrial plant custodian) As recommended by Mohit and / or your primary care provider tomorrow. Follow-up with: Ralph Samuels MD, ENT, , [facility], [address] [place] [address], [facility], [id number] Follow up tomorrow. ADDITIONAL INFORMATION Pharyngitis: Strep [Confirmed] Your test for strep throat was positive. Strep throat is a contagious illness. It is spread by coughing, kissing or by touching others after touching your mouth or nose. Symptoms include throat pain which is worse with swallowing, aching all over, headache and fever. You will be treated with an antibiotic which should make you start to feel better within 1-2 days. Home Care: Rest at home and drink plenty of fluids to avoid dehydration. No school or work for the first two days on antibiotics. You will not be contagious after this time and if you are feeling better, you can return to school or work. Take your antibiotics for a full 10 days, even if you feel better after the first few days of treatment. This is very important to prevent heart or kidney disease that can result as a complication of untreated strep throat infection. Children: Use acetaminophen (Tylenol) for fever, fussiness or discomfort. In infants over six months of age, you may use ibuprofen (Children's Motrin) instead of Tylenol. [NOTE: If your child has chronic liver or kidney disease or ever had a stomach ulcer or GI bleeding, talk with your doctor before using these medicines.] (Aspirin should never be used in anyone under 18 years of age who is ill with a fever. It may cause severe liver damage.)Adults: You may use acetaminophen (Tylenol) or ibuprofen (Motrin, Advil) to control pain or fever, unless another medicine was prescribed for this. [NOTE: If you have chronic liver or kidney disease or ever had a stomach ulcer or GI bleeding, talk with your doctor before using these medicines.] Throat lozenges or sprays (Chloraseptic and others) will reduce pain. Gargling with warm salt water will also reduce throat pain. Dissolve 1/2 teaspoon of salt in 1 glass of warm water. This is especially useful just before meals. Follow Up with your doctor or as directed by our staff if you are not improving over the next week. Get Prompt Medical Attention if any of the following occur: Fever of 100.4F (38C) oral or higher, not better with fever medication New or worsening ear pain, sinus pain or headache Painful lumps in the back of your neck Unable to swallow liquids or open your mouth wide due to throat pain Trouble breathing or noisy breathing Muffled voice New rash Clear Liquid Diet Clear liquids are any liquid that you can see through as well as those that are very easy to digest. This is used while the body is recovering from irritation or infection of the stomach or intestinal tract. It may also be used before special procedures or surgery. This diet is to be used no more than three days. You may include the following items. Adults Adults should drink a total of 23 quarts of liquid per day. It may be easier to drink small frequent servings rather than a few large ones. Liquids can include: Fruit juices.Strained orange juice or lemonade (no pulp), apple, grape and cranberry juice, clear fruit drinks, sports drinks Beverages.Sport drinks, sodas, mineral water (plain or flavored), tea, black coffee, liquid gelatin (add twice the recommended amount of water) Soups.Clear broth, consomm, bouillon Desserts.Plain gelatin, popsicles, fruit juice bars Children Over 2 years old The following liquids are acceptable for children over age 2: Fruit juices.Strained orange juice or lemonade (no pulp), apple, grape and cranberry juice, clear fruit drinks Beverages. Sports drinks, sodas, mineral water (plain or flavored), tea, liquid gelatin (add twice the recommended amount of water) Soups. Clear broth, consomm, bouillon Desserts. Plain gelatin, popsicles, fruit juice bars Children under 2 years old Oral rehydration fluids such are available at drug stores and most grocery stores without a prescription. Clindamycin Hydrochloride Oral capsule What is this medicine? CLINDAMYCIN (KLIN da MYE sin) is a lincosamide antibiotic. It is used to treat certain kinds of bacterial infections. It will not work for colds, flu, or other viral infections. How should I use this medicine? Take this medicine by mouth with a full glass of water. Follow the directions on the prescription label. You can take this medicine with food or on an empty stomach. If the medicine upsets your stomach, take it with food. Take your medicine at regular intervals. Do not take your medicine more often than directed. Take all of your medicine as directed even if you think your are better. Do not skip doses or stop your medicine early. Talk to your catering driver regarding the use of this medicine in children. Special care may be needed. What side effects may I notice from receiving this medicine? Side effects that you should report to your doctor or health healthcare applications analyst as soon as possible: allergic reactions like skin rash, itching or hives, swelling of the face, lips, or tongue dark urine pain on swallowing redness, blistering, peeling or loosening of the skin, including inside the mouth unusual bleeding or bruising unusually weak or tired yellowing of eyes or skin Side effects that usually do not require medical attention (report to your doctor or health healthcare applications analyst if they continue or are bothersome): diarrhea itching in the rectal or genital area joint pain nausea, vomiting stomach pain What may interact with this medicine? chloramphenicol erythromycin kaolin products What if I miss a dose? If you miss a dose, take it as soon as you can. If it is almost time for your next dose, take only that dose. Do not take double or extra doses. Where should I keep my medicine? Keep out of the reach of children. Store at room temperature between 20 and 25 degrees C (68 and 77 degrees F). Throw away any unused medicine after the expiration date. What should I tell my health care provider before I take this medicine? They need to know if you have any of these conditions: kidney disease liver disease stomach problems like colitis an unusual or allergic reaction to clindamycin, lincomycin, or other medicines, foods, dyes like tartrazine or preservatives or trying to get breast-feeding What should I watch for while using this medicine? Tell your doctor or healthcare professional if your symptoms do not start to get better or if they get worse. Do not treat diarrhea with over the counter products. Contact your doctor if you have diarrhea that lasts more than 2 days or if it is severe and watery. Hydrocodone Bitartrate, Acetaminophen Oral solution What is this medicine? ACETAMINOPHEN; HYDROCODONE (a set a KIRAN june fen; diogo droe KOE done) is a pain reliever. It is used to treat mild to moderate pain. How should I use this medicine? Take this medicine by mouth. Use a specially marked spoon or dropper to measure your dose. Ask your pharmacist if you do not have a dropper or measuring spoon. Do not use a household spoon. Follow the directions on the prescription label. If the medicine upsets your stomach, take it with food or milk. Do not take more medicine than you are told to take. Talk to your catering driver regarding the use of this medicine in children. This medicine is not approved for use in children. What side effects may I notice from receiving this medicine? Side effects that you should report to your doctor or health healthcare applications analyst as soon as possible: allergic reactions like skin rash, itching or hives, swelling of the face, lips, or tongue breathing problems confusion feeling faint or lightheaded, falls stomach pain yellowing of the eyes or skin Side effects that usually do not require medical attention (report to your doctor or health healthcare applications analyst if they continue or are bothersome): nausea, vomiting stomach upset What may interact with this medicine? alcohol antihistamines isoniazid medicines for depression, anxiety, or psychotic disturbances medicines for sleep muscle relaxants naltrexone narcotic medicines (opiates) for pain phenobarbital ritonavir tramadol What if I miss a dose? If you miss a dose, take it as soon as you can. If it is almost time for your next dose, take only that dose. Do not take double or extra doses. Where should I keep my medicine? Keep out of the reach of children. This medicine can be abused. Keep your medicine in a safe place to protect it from theft. Do not share this medicine with anyone. Selling or giving away this medicine is dangerous and against the law. Store at room temperature between 20 and 25 degrees C (68 and 77 degrees F). Protect from light. Keep container tightly closed. Throw away any unused medicine after the expiration date. Discard unused medicine and used packaging carefully. Pets and children can be harmed if they find used or lost packages. What should I tell my health care provider before I take this medicine? They need to know if you have any of these conditions: brain tumor Crohn's disease, inflammatory bowel disease, or ulcerative colitis drink more than 3 alcohol-containing drinks per day drug abuse or addiction head injury heart or circulation problems kidney disease or problems going to the bathroom liver disease lung disease, asthma, or breathing problems an unusual or allergic reaction to acetaminophen, hydrocodone, other opioid analgesics, other medicines, foods, dyes, or preservatives or trying to get breast-feeding What should I watch for while using this medicine? Tell your doctor or health healthcare applications analyst if your pain does not go away, if it gets worse, or if you have new or a different type of pain. You may develop tolerance to the medicine. Tolerance means that you will need a higher dose of the medicine for pain relief. Tolerance is normal and is expected if you take this medicine for a long time. Do not suddenly stop taking your medicine because you may develop a severe reaction. Your body becomes used to the medicine. This does NOT mean you are addicted. Addiction is a behavior related to getting and using a drug for a non-medical reason. If you have pain, you have a medical reason to take pain medicine. Your doctor will tell you how much medicine to take. If your doctor wants you to stop the medicine, the dose will be slowly lowered over time to avoid any side effects. You may get drowsy or dizzy when you first start taking the medicine or change doses. Do not drive, use machinery, or do anything that may be dangerous until you know how the medicine affects you. Stand or sit up slowly. There are different types of narcotic medicines (opiates) for pain. If you take more than one type at the same time, you may have more side effects. Give your health care provider a list of all medicines you use. Your doctor will tell you how much medicine to take. Do not take more medicine than directed. Call emergency for help if you have problems breathing. The medicine will cause constipation. Try to have a bowel movement at least every 2 to 3 days. If you do not have a bowel movement for 3 days, call your doctor or health healthcare applications analyst. Too much acetaminophen can be very dangerous. Do not take Tylenol (acetaminophen) or medicines that contain acetaminophen with this medicine. Many non-prescription medicines contain acetaminophen. Always read the labels carefully. Prednisolone Sodium Phosphate Oral solution What is this medicine? PREDNISOLONE (pred NISS oh lone) is a corticosteroid. It is used to treat inflammation of the skin, joints, lungs, and other organs. Common conditions treated include asthma, allergies, and arthritis. It is also used for other conditions, such as blood disorders and diseases of the adrenal glands. How should I use this medicine? Take this medicine by mouth. Use a specially marked spoon or dropper to measure your dose. Ask your pharmacist if you do not have one. Household spoons are not accurate. Take with food or milk to avoid stomach upset. If you are taking this medicine once a day, take it in the morning. Do not take it more often than directed. Do not suddenly stop taking your medicine because you may develop a severe reaction. Your doctor will tell you how much medicine to take. If your doctor wants you to stop the medicine, the dose may be slowly lowered over time to avoid any side effects. Talk to your catering driver regarding the use of this medicine in children. Special care may be needed. What side effects may I notice from receiving this medicine? Side effects that you should report to your doctor or health healthcare applications analyst as soon as possible: eye pain, decreased or blurred vision, or bulging eyes fever, sore throat, sneezing, cough, or other signs of infection, wounds that will not heal frequent passing of urine increased thirst mental depression, mood swings, mistaken feelings of self importance or of being mistreated pain in hips, back, ribs, arms, shoulders, or legs swelling of feet or lower legs Side effects that usually do not require medical attention (report to your doctor or health healthcare applications analyst if they continue or are bothersome): confusion, excitement, restlessness headache nausea, vomiting skin problems, acne, thin and shiny skin weight gain What may interact with this medicine? Do not take this medicine with any of the following medications: mifepristone This medicine may also interact with the following medications: aspirin phenobarbital phenytoin rifampin vaccines warfarin What if I miss a dose? If you miss a dose, take it a soon as you can. If it is almost time for your next dose, talk to your doctor or health healthcare applications analyst. You may need to miss a dose or take an extra dose. Do not take double or extra doses without advice. Where should I keep my medicine? Keep out of the reach of children. See product for storage instructions. Each product may have different instructions. What should I tell my health care provider before I take this medicine? They need to know if you have any of these conditions: Hadley's syndrome diabetes glaucoma heart problems or disease high blood pressure infection such as herpes, measles, tuberculosis, or chickenpox kidney disease liver disease mental problems myasthenia gravis osteoporosis seizures stomach ulcer or intestine disease including colitis and diverticulitis thyroid problem an unusual or allergic reaction to lactose, prednisolone, other medicines, foods, dyes, or preservatives or trying to get breast-feeding What should I watch for while using this medicine? Visit your doctor or health healthcare applications analyst for regular checks on your progress. If you are taking this medicine over a prolonged period, carry an identification card with your name and address, the type and dose of your medicine, and your doctor's name and address. The medicine may increase your risk of getting an infection. Stay away from people who are sick. Tell your doctor or health healthcare applications analyst if you are around anyone with measles or chickenpox. If you are going to have surgery, tell your doctor or health healthcare applications analyst that you have taken this medicine within the last twelve months. Ask your doctor or health healthcare applications analyst about your diet. You may need to lower the amount of salt you eat. The medicine can increase your blood sugar. If you are a diabetic check with your doctor if you need help adjusting the dose of your diabetic medicine. Acetaminophen Oral tablet What is this medicine? ACETAMINOPHEN (a set a KIRAN june fen) is a pain reliever. It is used to treat mild pain and fever. How should I use this medicine? Take this medicine by mouth with a glass of water. Follow the directions on the package or prescription label. Take your medicine at regular intervals. Do not take your medicine more often than directed. Talk to your catering driver regarding the use of this medicine in children. While this drug may be prescribed for children as young as 6 years of age for selected conditions, precautions do apply. What side effects may I notice from receiving this medicine? Side effects that you should report to your doctor or health healthcare applications analyst as soon as possible: allergic reactions like skin rash, itching or hives, swelling of the face, lips, or tongue breathing problems fever or sore throat redness, blistering, peeling or loosening of the skin, including inside the mouth trouble passing urine or change in the amount of urine unusual bleeding or bruising unusually weak or tired yellowing of the eyes or skin Side effects that usually do not require medical attention (report to your doctor or health healthcare applications analyst if they continue or are bothersome): headache nausea, stomach upset What may interact with this medicine? alcohol imatinib isoniazid other medicines with acetaminophen What if I miss a dose? If you miss a dose, take it as soon as you can. If it is almost time for your next dose, take only that dose. Do not take double or extra doses. Where should I keep my medicine? Keep out of reach of children. Store at room temperature between 20 and 25 degrees C (68 and 77 degrees F). Protect from moisture and heat. Throw away any unused medicine after the expiration date. What should I tell my health care provider before I take this medicine? They need to know if you have any of these conditions: if you frequently drink alcohol containing drinks liver disease an unusual or allergic reaction to acetaminophen, other medicines, foods, dyes or preservatives or trying to get breast-feeding What should I watch for while using this medicine? Tell your doctor or health healthcare applications analyst if the pain lasts more than 10 days (5 days for children), if it gets worse, or if there is a new or different kind of pain. Also, check with your doctor if a fever lasts for more than 3 days. Do not take other medicines that contain acetaminophen with this medicine. Always read labels carefully. If you have questions, ask your doctor or pharmacist. If you take too much acetaminophen get medical help right away. Too much acetaminophen can be very dangerous and cause liver damage. Even if you do not have symptoms, it is important to get help right away. Ibuprofen Oral tablet What is this medicine? IBUPROFEN (eye BYOO proe fen) is a non-steroidal anti-inflammatory drug (NSAID). It is used for dental pain, fever, headaches or migraines, osteoarthritis, rheumatoid arthritis, or painful monthly periods. It can also relieve minor aches and pains caused by a cold, flu, or sore throat. How should I use this medicine? Take this medicine by mouth with a glass of water. Follow the directions on the prescription label. Take this medicine with food if your stomach gets upset. Try to not lie down for at least 10 minutes after you take the medicine. Take your medicine at regular intervals. Do not take your medicine more often than directed. A special MedGuide will be given to you by the pharmacist with each prescription and refill. Be sure to read this information carefully each time. Talk to your catering driver regarding the use of this medicine in children. Special care may be needed. What side effects may I notice from receiving this medicine? Side effects that you should report to your doctor or health healthcare applications analyst as soon as possible: allergic reactions like skin rash, itching or hives, swelling of the face, lips, or tongue black or bloody stools, blood in the urine or in vomit breathing problems changes in vision chest pain general ill feeling or flu-like symptoms nausea or vomiting redness, blistering, peeling or loosening of the skin, including inside the mouth slurred speech or weakness on one side of the body stomach pain unexplained weight gain or swelling unusually weak or tired yellowing of eyes or skin Side effects that usually do not require medical attention (report to your doctor or health healthcare applications analyst if they continue or are bothersome): constipation or diarrhea dizziness gas or heartburn stomach upset What may interact with this medicine? Do not take this medicine with any of the following medications: cidofovir ketorolac methotrexate pemetrexed This medicine may also interact with the following medications: alcohol aspirin diuretics lithium other drugs for inflammation like prednisone warfarin What if I miss a dose? If you miss a dose, take it as soon as you can. If it is almost time for your next dose, take only that dose. Do not take double or extra doses. Where should I keep my medicine? Keep out of the reach of children. Store at room temperature between 15 and 30 degrees C (59 and 86 degrees F). Keep container tightly closed. Throw away any unused medicine after the expiration date. What should I tell my health care provider before I take this medicine? They need to know if you have any of these conditions: asthma cigarette smoker drink more than 3 alcohol containing drinks a day heart disease or circulation problems such as heart failure or leg edema (fluid retention) high blood pressure kidney disease liver disease stomach bleeding or ulcers an unusual or allergic reaction to ibuprofen, aspirin, other NSAIDS, other medicines, foods, dyes, or preservatives or trying to get breast-feeding What should I watch for while using this medicine? Tell your doctor or healthcare professional if your symptoms do not start to get better or if they get worse. This medicine does not prevent heart attack or stroke. In fact, this medicine may increase the chance of a heart attack or stroke. The chance may increase with longer use of this medicine and in people who have heart disease. If you take aspirin to prevent heart attack or stroke, talk with your doctor or health healthcare applications analyst. Do not take other medicines that contain aspirin, ibuprofen, or naproxen with this medicine. Side effects such as stomach upset, nausea, or ulcers may be more likely to occur. Many medicines available without a prescription should not be taken with this medicine. This medicine can cause ulcers and bleeding in the stomach and intestines at any time during treatment. Ulcers and bleeding can happen without warning symptoms and can cause . To reduce your risk, do not smoke cigarettes or drink alcohol while you are taking this medicine. You may get drowsy or dizzy. Do not drive, use machinery, or do anything that needs mental alertness until you know how this medicine affects you. Do not stand or sit up quickly, especially if you are an older patient. This reduces the risk of dizzy or fainting spells. This medicine can cause you to bleed more easily. Try to avoid damage to your teeth and gums when you brush or floss your teeth. You have been given the following additional information: Pharyngitis, Strep (Confirmed) Diet, Clear Liquid Clindamycin Hydrochloride Oral capsule Hydrocodone Bitartrate, Acetaminophen Oral solution Prednisolone Sodium Phosphate Oral solution Acetaminophen Oral tablet Ibuprofen Oral tablet Do not work for three days. Rest. (Electronically signed by Tomer Guardado DO 11/01/2016 11:13)
--- NOTE | 2016-11-01 11:14 | ED MAR SUMMARY ---
..... Medication Administration Record [facility] [address] [place] [address] Patient: ASHLEY SHARPE Visit ID: [id number] 41y, F Weight: 81.6 kg Height/Length: 61 in BMI: 34 ALLERGIES: No Known Drug Allergy Start 07:28 11/01/2016 Gi Diez R.N., Stop 08:30 11/01/2016 Gi Diez R.N. Medication Administered: IV NS (SALINE), Dose: IV Fluids over 1 hour(s), Rate: 1000 mL/hr, Dispensed: 1000 mL bag, Site: #1 right AC. Medication Ordered: IV NS : initial bolus 1000 mL (1000 mL/hr), then 1000 mL/hr for X1 (NOW). Given 07:29 11/01/2016 Gi Diez R.N. Medication Administered: ZOFRAN [IVP] (ONDANSETRON HCL), Dose: 4 mg IVP over 1 minute(s), Site: #1 right AC. Medication Ordered: Zofran IV 4 mg (NOW). Given 07:30 11/01/2016 Gi Diez R.N. Medication Administered: DEXAMETHASONE [IVP], Dose: 10 mg IVP over 3 minute(s), Site: #1 right AC. Medication Ordered: Dexamethasone IV 10 mg (NOW). Given 07:38 11/01/2016 Gi Diez R.N. Medication Administered: DILAUDID [IVP] (HYDROMORPHONE HCL PF), Dose: 0.5 mg IVP over 1 minute(s), Site: #1 right AC. Medication Ordered: Dilaudid IV 0.5 mg (HIGH ALERT MEDICATION, NOW). Start 07:41 11/01/2016 Gi Diez R.N., Stop 07:59 11/01/2016 Gi Diez R.N. Medication Administered: CEFTRIAXONE [IVPB], Dose: 2 gm IVPB over 20 minute(s), Rate: 150 mL/hr, Dispensed: 50 mL bag, Site: #1 right AC. Medication Ordered: Ceftriaxone IV 2 gm/50mL (NOW).
== END 2016-11-01 09:20 | disposition home or self-care (01) ==
LOC: ED SRH 06:26
DX: J02.0 Streptococcal pharyngitis (principal)
CPT/HCPCS: 90047; 90154; 95059; 98370